=== PATIENT | female | born 1955 | race Asian ===

== ENCOUNTER 2022-01-14 13:46 | Outpatient (CLI) | payer MEDICAID, SELFPAY ==
[2022-01-14 21:40] LABS: Chloride* 104 mmol/L (96-114); Potassium* 5.3 mmol/L (3.6-5.1); Sodium* 141 mmol/L (135-149)
[2022-01-14 21:41] LABS: Aspartate Amino Transferase* 29 U/L (12-35); Bilirubin Total* 0.8 mg/dL (0.1-1.5); Blood Urea Nitrogen* 9 mg/dL (7-30); Carbon Dioxide* 28 mmol/L (20-32); Cholesterol* 245 mg/dL (90-199); Creatinine* 0.5 mg/dL (0.5-1.5); Estimated Glomerular Filt Rate 104.02; Total Protein* 7.4 g/dL (6.0-8.3)
[2022-01-14 21:42] LABS: Alanine Aminotransferase* 21 U/L (4-35); Alkaline Phosphatase* 96 U/L (40-150); Calcium* 9.9 mg/dL (8.4-10.6); Glucose* 93 mg/dL (60-115); HDL Cholesterol* 46 mg/dL (>=50); LDL Cholesterol Calculated 144 mg/dL (<100); Triglycerides* 275 mg/dL (40-149)
== END 2022-01-14 13:47 | disposition home or self-care (01) ==
PROVIDERS: PCP Emergency Medicine; Visit Provider Emergency Medicine
DX: Z00.00 Encounter for general adult medical examination without abnormal findings (principal); R51.9 Headache, unspecified; R73.01 Impaired fasting glucose; Z13.6 Encounter for screening for cardiovascular disorders
CPT/HCPCS: 80053; 80061

== ENCOUNTER 2022-01-28 14:03 | Outpatient (CLI) | payer MEDICAID, SELFPAY ==
--- NOTE | 2022-01-28 14:00 | CRLHL7_ITS ---
For Patients: As a result of the Century Cures Act, medical imaging exams and procedure reports are released immediately into your electronic medical record. You may view this report before your referring provider. If you have questions, please contact your health care provider. BILATERAL SCREENING MAMMOGRAM WITH COMPUTER-AIDED DETECTION TECHNIQUE: CC and MLO views were obtained. These mammographic images have been obtained using full-field digital technique. These mammographic images were interpreted with the benefit of computer-aided detection. COMPARISON FILM: 12/25/16, 03/01/14, 01/23/11. FINDINGS: There are scattered areas of fibroglandular density IMPRESSION: There is no radiographic evidence for malignancy. ASSESSMENT: BI-RADS Category 1: Negative RECOMMENDATION: Routine screening mammogram in 1 year. A lay language report of this examination will be provided to the patient. Harry Goldman M.D. Diagnostic Radiologist [email or web address] Transcribed: 4:13 pm DW/Dictated by: Harry Goldman MD @ 02/10/2022 8:33:00 AM (Electronically Signed)
== END 2022-01-28 14:04 | disposition home or self-care (01) ==
LOC: MAMMO 14:05
PROVIDERS: PCP Emergency Medicine; Visit Provider Emergency Medicine
DX: Z12.31 Encounter for screening mammogram for malignant neoplasm of breast (principal)
CPT/HCPCS: 77067

== ENCOUNTER 2022-02-11 10:18 | Outpatient (CLI) | payer MEDICARE, SELFPAY | END 2022-02-11 10:19 | disposition home or self-care (01) | PROVIDERS: PCP Emergency Medicine; Visit Provider Surgery | DX: Z12.11 Encounter for screening for malignant neoplasm of colon (principal) | CPT/HCPCS: 45378; 99153; J2250; J3010 ==